=== PATIENT | male | born 1965 | race Caucasian/White ===

== ENCOUNTER → 2017-07-04 | Outpatient (CLI) | payer MEDICARE, BC ==
--- NOTE | 2017-07-04 14:19 | XR ---
EXAMINATION TYPE: XR KUB DATE OF EXAM: 07/04/2017 COMPARISON: NONE INDICATION: Renal stones. TECHNIQUE: Single view abdomen supine view FINDINGS: There is a normal bowel gas pattern. Psoas margins are normal. No organomegaly is present. There is a 1.1 x 0.5 cm calcification overlying the tip of the left L5 transverse process could be a distal left ureteral stone. In the frontal projection couple small calcifications may overlie the tip of the left 12th rib over the inferior pole left kidney could be renal stones. Suspect metallic fore ign body on or within the patient at the right lower quadrant is present. This exam is compared to 05/11/2013. The suspected mid left ureteral stone is new. There was a inferi or pole left renal calcifications present previously. IMPRESSION: 1. Mid left ureteral stone measuring 1.1 x 0.5 cm overlying the fifth left transverse process. 2. Suspected inferior pole left renal stones at the level of the tip of the 12th rib.
== END | disposition home or self-care (01) ==
LOC: RADXRMAIN 13:39
PROVIDERS: ATTEND Physician Assistant
DX: N20.1 Calculus of ureter (principal)
CPT/HCPCS: 74000

== ENCOUNTER → 2018-02-24 | Outpatient (CLI) | payer MEDICARE, BC ==
--- NOTE | 2018-02-24 10:13 | CT ---
EXAMINATION TYPE: CT shoulder RT wo con DATE OF EXAM: 02/24/2018 COMPARISON: None HISTORY: Right shoulder pain for years. Pre Op shoulder replacement TECHNIQUE: CT DLP: 1097.[address] slices were obtained of the right shoulder with sagittal and coronal reformats ob tained for review. 3-D bone reconstructed images were obtained and a separate workstation and also cason bmitted for review. Automated exposure control for dose reduction was used. FINDINGS: There is extensive right glenohumeral arthropathy with large protuberant osteophyte emanating inferio rly from the humeral head into the axillary recess. Air is present within the joint space likely from extensive degenerative change. There is remodeling and flattening of the glenoid with marginal osteo phytes. Subchondral sclerosis is seen of the humeral head. Overall muscle volume of the rotator cuff is maintained. No significant joint effusion is seen. No ev idence of acute fracture or dislocation is noted. Only minimal acromioclavicular arthropathy is prese nt as small marginal osteophytes. The visualized portions of the right lung are well aerated with minimal atelectasis that is subsegmen faina. Visualized portions of the right clavicle and ribs are intact. No axillary adenopathy. IMPRESSION: 1. EXTENSIVE RIGHT GLENOHUMERAL ARTHROPATHY WITH REMODELING OF THE HUMERAL HEAD AND GLENOID. 2. ROTATOR CUFF VOLUME IS OVERALL MAINTAINED WITHOUT ATROPHY NOTED ON CT. 3. NO EVIDENCE OF ACUTE FRACTURE OR DISLOCATION OF THE RIGHT SHOULDER. 4. MILD ACROMIOCLAVICULAR ARTHROPATHY.
== END | disposition home or self-care (01) ==
LOC: RADCTMAIN 07:29
PROVIDERS: ATTEND Orthopaedic Surgery Sports Medicine
DX: M12.811 Other specific arthropathies, not elsewhere classified, right shoulder (principal)

== ENCOUNTER → 2018-03-19 | Outpatient (CLI) | payer MEDICARE, BC ==
[2018-03-19 10:22] LABS: HCT 45.1 % (39.0-53.0); HGB 14.5 gm/dL (13.0-17.5); MCH 29.8 pg (25.0-35.0); MCHC 32.2 g/dL (31.0-37.0); MCV 92.4 fL (80.0-100.0); Mean Platelet Volume 6.5; Platelet Count 236 k/uL (150-450); RBC 4.88 m/uL (4.30-5.90); RDW 12.7 % (11.5-15.5); WBC 6.7 k/uL (3.8-10.6)
[2018-03-19 10:31] LABS: INR 1.1 (<1.2); Partial Thromboplastin Time 23.8 sec (22.0-30.0); Prothrombin Time 10.4 sec (9.0-12.0)
[2018-03-19 10:34] LABS: Appearance,Urine Clear (Clear); Bilirubin,Urine Negative (Negative); Blood,Urine Trace (Negative); Color,Urine Yellow; Glucose,Urine (UA) Negative (Negative); Ketones,Urine Negative (Negative); Leukocyte Esterase,Urine Negative (Negative); Mucus,Urine Rare /hpf; Nitrite,Urine Negative (Negative); PH, Urine 6.5 (5.0-8.0); Protein,Urine Negative (Negative); RBC,Urine 2 /hpf (0-5); Specific Gravity,Urine 1.016 (1.001-1.035); Urobilinogen,Urine <2.0 mg/dL (<2.0); WBC,Urine 1 /hpf (0-5)
[2018-03-19 10:43] LABS: ALT 47 U/L (21-72); AST 30 U/L (17-59); Albumin 4.2 g/dL (3.5-5.0); Alkaline Phosphatase 72 U/L (38-126); Anion Gap 7 mmol/L; Blood Urea Nitrogen 20 mg/dL (9-20); Calcium 9.4 mg/dL (8.4-10.2); Carbon Dioxide 30 mmol/L (22-30); Chloride 104 mmol/L (98-107); Glucose 107 mg/dL (74-99); Potassium 5.2 mmol/L (3.5-5.1); Sodium 141 mmol/L (137-145); Total Bilirubin 0.4 mg/dL (0.2-1.3); Total Protein 7.1 g/dL (6.3-8.2)
== END | disposition home or self-care (01) ==
LOC: LABPAT 10:01
PROVIDERS: ATTEND Orthopaedic Surgery Sports Medicine
DX: Z01.812 Encounter for preprocedural laboratory examination (principal)
CPT/HCPCS: 36415; 80053; 81001; 85027; 85610; 85730; 87070

== ENCOUNTER 2018-03-27 11:30 | Inpatient (IN) | payer MEDICARE, BC ==
[2018-03-20 10:26] VITALS: BMI 40.3
[~2018-03-27 11:30] MED LIST: ACETAMINOPHEN TAB 500 MG TAB PO ONE; DEXAMETHASONE SOD PHOSPHATE 10 MG/ML 1 ML VIAL IV ONE; MELOXICAM 7.5 MG TAB PO ONE; MIDAZOLAM 2 MG/2 ML VIAL IV PRN; ONDANSETRON 4 MG/2 ML VIAL IVP ONE; SCOPOLAMINE 1.5MG/72HR PATCH TRANSDERM ONE; TRANEXAMIC ACID 1,000 MG in SODIUM CHLORIDE 0.9% 50 ML IVPB ONE; ceFAZolin IN SWFI 2 GM/20 ML SYRINGE IVP ONE
[2018-03-27] MEDS ORDERED: LIDOCAINE 1% 20 ML VIAL (10MG/ML) FOR IV START INTRADERMA ONE (12:30)
[2018-03-27] MEDS ORDERED: fentaNYL (PF) 50 MCG/ML 2 ML AMP IVP ONE (12:36)
[2018-03-27] MEDS: LACTATED RINGERS 1,000 ML IV SCH ×3 (13:01→23:26)
[2018-03-27] MEDS ORDERED: PHENYLEPHRINE-0.9% NACL SYG 1 MG/10 ML SYRINGE ONE (13:24)
[2018-03-27] MEDS ORDERED: ePHEDrine SULFATE/0.9% NACL/PF 50 MG/5 ML SYRINGE IV ONE (13:24)
[2018-03-27] MEDS ORDERED: NEOSTIGMINE 1 MG/ML 10 ML VIAL ONE (13:24)
[2018-03-27] MEDS ORDERED: SUCCINYLCHOLINE CHLORIDE 100 MG/5 ML SYR IV ONE (13:24)
[2018-03-27] MEDS ORDERED: PROPOFOL 10 MG/ML 20 ML VIAL IV ONE (13:24)
[2018-03-27] MEDS ORDERED: TRANEXAMIC ACID 1,000 MG/10 ML VIAL ONE (13:24)
[2018-03-27] MEDS ORDERED: MIDAZOLAM 2 MG/2 ML VIAL ONE (13:24)
[2018-03-27] MEDS ORDERED: LIDOCAINE 1% INJ 10MG/ML (20 ML MDV) ONE (13:24)
[2018-03-27] MEDS ORDERED: ROCURONIUM BROMIDE 10 MG/ML 10 ML VIAL IV ONE (13:24)
[2018-03-27] MEDS ORDERED: GLYCOPYRROLATE 0.2 MG/ML 2 ML VIAL ONE (13:24)
[2018-03-27] MEDS ORDERED: SODIUM CHLORIDE 0.9% 100 ML BAG ONE (13:24)
[2018-03-27] MEDS ORDERED: fentaNYL (PF) 50 MCG/ML 2 ML AMP ONE (13:24)
[2018-03-27] MEDS ORDERED: VANCOMYCIN 1,000 MG VIAL MISCELLANE ONE (14:00)
--- NOTE | 2018-03-27 15:18 | P.ONQ ---
Anesthesiology Proc Note - PNB - Peripheral Nerve Block Performed Right Interscalene Single Procedure Start Time: 12:35 Procedure Stop Time: 12:50 Indication: Analgesia Specifically requested for management of pain by Dr.: Jung Wheat Sedation Type: Sedate with meaningful contact maintained Preparation: Sterile Prep Position: Supine Needle Types: Other (see comment) Needle Size: 50mm (2") (pujunk) Needle Gauge: 21 (ropivacaine 0.5 % 15 ml plus Lidocaine 1 % with epi 1/200k 10 ml ) Technique: Ultrasound Injectate: 0.5% Ropivacaine (see comment for volume) Blood Aspirated: No Pain Paresthesia on Injection Noted: No Resistance on Injection: Normal Events: Uneventful and Well Tolerated
[2018-03-27] MEDS ORDERED: PROCHLORPERAZINE SUPPOSITORY 25 MG SUPP RECTAL PRN (15:45)
[2018-03-27] MEDS ORDERED: SENNOSIDES-DOCUSATE SODIUM 1 EACH TAB PO PRN (15:45)
[2018-03-27] MEDS ORDERED: HYDROmorphone 1 MG/ML 1 ML SYRINGE IVP PRN ×2 (15:45)
[2018-03-27] MEDS ORDERED: TEMAZEPAM 15 MG CAP PO PRN (15:45)
[2018-03-27] MEDS ORDERED: ONDANSETRON 4 MG/2 ML VIAL IVP PRN (15:45)
[2018-03-27] MEDS ORDERED: diphenhydrAMINE 25 MG CAP PO PRN (15:45)
[2018-03-27] MEDS ORDERED: METOCLOPRAMIDE 5 MG/ML 2 ML VIAL IVP PRN (15:45)
[2018-03-27] MEDS: fentaNYL (PF) 50 MCG/ML 2 ML AMP IV PRN ×2 (16:04→16:10)
--- NOTE | 2018-03-27 16:09 | XR ---
Limited right shoulder HISTORY: Status post right shoulder arthroplasty Single frontal view of the right shoulder Patient is status post right shoulder arthroplasty. There is anatomic alignment thought present in th is single view. Motion present on the exam. Indwelling drain suspected. IMPRESSION: Orthopedic follow-up as described, somewhat limited.
[2018-03-27] MEDS: HYDROmorphone 1 MG/ML 1 ML SYRINGE IVP ONE ×4 (16:28→16:52)
[2018-03-27] MEDS: CARVEDILOL 3.125 MG TAB PO SCH (17:55)
[2018-03-27] MEDS: HYDROcodone/APAP 10-325MG 1 EACH TAB PO PRN (17:55)
--- NOTE | 2018-03-27 19:06 | OP ---
OPERATIVE REPORT DATE OF PROCEDURE: 03/27/2018 SURGEON: Jung Wheat MD SUPERVISOR [employer] FORMER: Derek Recio PA-C PREOPERATIVE DIAGNOSIS: Right shoulder osteoarthrosis. POSTOPERATIVE DIAGNOSIS: Right shoulder osteoarthrosis. OPERATION: Right total shoulder arthroplasty. ANESTHESIA: General endotracheal. ESTIMATED BLOOD LOSS: 150 mL. DRAINS: One deep drain. COMPLICATIONS: None apparent. DISPOSITION: Post-Anesthesia Care Unit. INDICATIONS: Mr. Cline is a very pleasant 52-year-old male with longstanding right shoulder pain. Workup, including x-rays, revealed advanced osteoarthrosis of the right shoulder. At this point he feels that he has failed conservative management and would like to proceed with operative intervention. The risks of the procedure were discussed with him in detail. These risks include but are not limited to risk of infection, nerve damage, bleeding, pain, instability in the shoulder, loosening of the implants and deep infection. There is also risk of deep vein thrombosis which could lead to fatal pulmonary embolism. The patient understood the risks. All of his questions with regards to the procedure were answered to his satisfaction. Appropriate informed consent was obtained. DESCRIPTION OF PROCEDURE: Patient was identified in the preoperative holding area. Surgical site was marked by both the patient and myself. He was given 2 grams of Ancef IV for prophylactic purposes. He was then transferred to the operative suite. He was placed supine on the operative table. General anesthetic was then administered and dosed per the anesthesia department without apparent complication. Examination under anesthesia was then performed of the right shoulder. He had elevation of 120 degrees. External rotation at the side was to 30 degrees. The patient was then placed into the beach chair position, well padded in preparation for surgery. Great care was taken to ensure that the cervical spine was in neutral alignment and maintained that way throughout the operative procedure. Great care was also taken to ensure that his legs were appropriately padded as well. The patient's right upper extremity was then prepped and draped in the usual sterile fashion. Standard surgical pause was undertaken to ensure that we were operating on the correct site and that appropriate preoperative antibiotics had been given. All staff in the room were in agreement and we proceeded. The acromion, AC joint, clavicle and coracoid were marked with a surgical pen. A planned incision starting at the level of the clavicle and extending distally over the deltopectoral interval approximately 1 cm lateral to the coracoid was marked with a surgical pen. The incision was then made with a 10 blade scalpel. Dissection was carried down sharply to the deltoid fascia. The deltopectoral interval was then identified at the level of the clavicle. A small band retractor was placed onto the proximal deltoid. I then released the deltoid fascia on the lateral aspect of the cephalic vein. The vein was left in its bed medially. The cephalic vein was protected throughout the entire case. I then identified the clavipectoral fascia. It was incised proximally to the level of the coracoacromial ligament. The coracoacromial ligament was left intact. I then used my finger to spread the interval between the conjoint tendon and the subscapularis. I felt for the axillary nerve, which was readily palpable. I then cleared the subacromial and subdeltoid spaces of bursal and scar tissue. I then utilized a Maguire retractor to hold the deltoid and expose the humeral head. I then proceeded with release of the subscapularis and the anterior inferior shoulder capsule. The rotator cuff was inspected. It was found to be intact. The rotator interval was identified. The bicipital groove was also identified. I then released the rotator interval. It was released at the base of the coracoid and then out laterally. The subscapularis and the capsule were released intratendinously. The subscapularis and capsule release extended distally in a lazy-S fashion approximately 1 cm medial to the biceps tendon. I then continued to release the capsule along the inferior neck in a vertical fashion to about the 6 o'clock position. Great care was taken to ensure that the capsule was always visualized as it was released to avoid injuring the axillary nerve. I then brought a Garcia hvac instructor with the arm and then externally rotated and abducted it. I continued to release the capsule inferomedially to the 4 o'clock position. The inferior osteophytes were now removed as well. This was done with a rongeur. I then proceeded with preparation of the humerus. I removed all the goat's adan osteophytes. I then removed the subchondral plate from the superior aspect of the humeral head utilizing a large rongeur. I then used the starting reamer to gain access to the humeral canal. This was 1 cm medial to the rotator cuff insertion and 1 cm posterior to the bicipital groove. I then prepared the humeral canal with hand reaming. I started with a 6 mm reamer and progressed in 1 mm increments until firm resistance was encountered. This was at 12 mm. The reamer handle was then left in place. I then utilized the humeral resection guide set at 30 degrees of retrotorsion. The cutting block was set approximately 1-2 mm above the insertion of the rotator cuff. I then proceeded to osteotomize the head with an oscillating saw. I removed the resection guide and then completed the osteotomy. I then proceeded with trial stem placement. A trial size 12 was then broached into the canal starting with a size 6 broach and moving incrementally up to a 12 mm broach. A trial 12 mm stem was then placed. I then proceeded with a trial reduction. I started with a 46 x 18 x 53 head. This seemed to fit very nicely. The head fit opposite the glenoid. The rotator cuff was not tented. Internal rotation was to 90 degrees. Elevation was to 150 degrees and translation was one half of the head in neutral rotation and inferiorly one quarter of the head in 15-20 degrees of abduction. I then removed the trial head. The stem was left in place to protect the proximal humerus. I then proceeded with exposure of the glenoid. At this point a bone hook was used to pull the humerus out laterally. I inspected the joint for any loose bodies. The condition of the cuff was again inspected. It was in excellent condition. The Bhattman retractor was then placed on the posterior glenoid rim. The arm was placed in approximately 80 degrees of abduction and in slight flexion on the Garcia stand. I then proceeded to remove the hypertrophic labrum to definitively identify the actual glenoid. I then selected the size of the glenoid. A medium-sized glenoid fit very nicely. I then utilized a starting drill to make the centering hole. I then proceeded to ream the glenoid fossa. This was done with a medium-sized reamer. The reamer was taken down to paprika signs. There was a nice bleeding surface. There was a tiny bit of posterior inferior loss, and I preferentially took off slightly more anterior glenoid with the reaming. I then proceeded to place the glenoid drill holes. The peripheral drill holes were then placed and the center hole was then drilled as well. I then placed the trial medium-sized glenoid. It fit very nicely onto the glenoid. I then proceed with cementing. I Waterpikked the wound in the bone. The drill holes were packed with Ray-Sowmya sponges. The cement was then mixed on the back table by the surgical garment inspector. This was antibiotic-impregnated cement. Drill holes were then packed with cement utilizing a 20 mL syringe. These were packed very tightly. A small amount of cement was then placed on the posterior aspect of the real glenoid component as well. I then impacted the real glenoid component into place. It was a Biomet medium-sized pegged glenoid component with a Regenerex central peg. Excess cement was removed utilizing a freer elevator. Pressure was held on to the glenoid component until the cement had hardened. I then removed the Bhattman retractor. We then proceeded with humeral component trial reduction with the real glenoid. The 46 x 18 x 53 head was then placed back onto the stem. Again this was taken through a trial. The head set opposite the glenoid. The rotator cuff was not tented. Elevation was to 150 degrees, internal rotation in 90 degrees and translation was one half of the head in neutral rotation and one quarter of the head in 15-20 degrees of abduction. I then had the traffic workforce representative open the 46 x 18 x 53 real head, a size 12 Biomet mini stem as well. The stem was then impacted into the canal in 30 degrees of retrotorsion. The real head was then impacted onto the stem. The shoulder was reduced. I then proceeded with closure. Again the wound was thoroughly irrigated with sterile saline solution was antibiotic added via pulse lavage. The rotator interval was closed with #1 coated Vicryl. The subscapularis was then closed with interrupted #2 FiberWire suture. A deep drain was then placed and brought out superiorly away from the incision. Again the wound was thoroughly irrigated. Approximately 500 mg of vancomycin powder was then placed deep into the wound. The deltopectoral interval was then closed with 0 Vicryl interrupted suture. The subcutaneous tissue was again thoroughly irrigated with sterile saline solution with antibiotic added via pulse lavage. The remaining 500 mg of vancomycin powder was then added to the wound. The subcutaneous tissue was then closed with 2-0 Vicryl interrupted suture and the skin was closed with a running 3-0 Quill suture. Dermabond was applied to the incision. Sterile compressive dressing was then applied. The patient's right upper extremity was then placed into a shoulder immobilizer. All sponge and needle counts were deemed correct prior to closure. The patient tolerated the procedure without apparent complication. He was transferred to the recovery room in stable condition. ESTER / JOEY: [id number] /
[2018-03-27] MEDS: HYDROmorphone 1 MG/ML 1 ML SYRINGE IVP PRN ×2 (19:42→23:25)
[2018-03-27] MEDS: ATORVASTATIN 80 MG TAB PO SCH (20:38)
[2018-03-27] MEDS: DOXYCYCLINE MONOHYDRATE 100 MG CAPSULE PO SCH (20:38)
[2018-03-27] MEDS: ceFAZolin IN SWFI 2 GM/20 ML SYRINGE IVP SCH (20:38)
[2018-03-28] MEDS: HYDROcodone/APAP 10-325MG 1 EACH TAB PO PRN ×6 (00:05→23:02)
[2018-03-28 03:21] LABS: Basophils % (A) 0 %; Eosinophils % (A) 0 %; HCT 43.4 % (39.0-53.0); HGB 13.9 gm/dL (13.0-17.5); Lymphocytes # (A) 1.2 k/uL (1.0-4.8); Lymphocytes % (A) 12 %; MCH 29.4 pg (25.0-35.0); MCHC 31.9 g/dL (31.0-37.0); MCV 92.3 fL (80.0-100.0); Mean Platelet Volume 6.3; Monocytes # (A) 0.9 k/uL (0-1.0); Monocytes % (A) 9 %; Neutrophils # (A) 8.2 k/uL (1.3-7.7); Neutrophils % (A) 78 %; Platelet Count 261 k/uL (150-450); RBC 4.71 m/uL (4.30-5.90); RDW 12.6 % (11.5-15.5); WBC 10.6 k/uL (3.8-10.6)
[2018-03-28 03:27] LABS: Anion Gap 12 mmol/L; Blood Urea Nitrogen 23 mg/dL (9-20); Calcium 9.3 mg/dL (8.4-10.2); Carbon Dioxide 23 mmol/L (22-30); Chloride 99 mmol/L (98-107); Glucose 154 mg/dL (74-99); Potassium 4.6 mmol/L (3.5-5.1); Sodium 134 mmol/L (137-145)
[2018-03-28] MEDS: ceFAZolin IN SWFI 2 GM/20 ML SYRINGE IVP SCH (05:49)
[2018-03-28] MEDS: LACTATED RINGERS 1,000 ML IV SCH ×2 (05:52→16:26)
[2018-03-28] MEDS: LISINOPRIL 5 MG TAB PO SCH (08:34)
[2018-03-28] MEDS: EZETIMIBE 10 MG TAB PO SCH (08:34)
[2018-03-28] MEDS: DOXYCYCLINE MONOHYDRATE 100 MG CAPSULE PO SCH ×2 (08:34→20:24)
[2018-03-28] MEDS: CARVEDILOL 3.125 MG TAB PO SCH ×2 (08:34→17:58)
[2018-03-28] MEDS: ASPIRIN 81 MG PO SCH (08:34)
[2018-03-28] MEDS: FENOFIBRATE 160 MG TAB PO SCH (08:35)
[2018-03-28] MEDS ORDERED: NON-FORMULARY DRUG (Omega-3 Fatty Acids/Fish Oil [Fish Oil 1,000 Mg Softgel] 1 EACH) PO SCH (09:00)
--- NOTE | 2018-03-28 09:31 | P.DS ---
Providers Date of admission: 03/27/18 11:42 Expected date of discharge: 03/28/18 Attending physician: Jung Wheat Consults: 03/27/18 15:53 Consult Physician Routine Consulting Provider: Garrett Ortiz Consult Reason/Comments: post op medical management Do you want consulting provider notified?: Yes Primary care physician: Meg Pat - Discharge Diagnosis(es) (1) Status post total replacement of right shoulder Current Visit: Yes Status: Acute (2) Osteoarthritis of right shoulder Current Visit: Yes Status: Acute Hospital Course: This is a 52-year-old male who has history of severe degenerative arthritis of the right shoulder and presented to discuss surgical options. After discussion and consideration the patient elects to proceed with total shoulder arthroplasty. The pt is seen preoperatively by their family physician and cleared for surgery. The patient is admitted to [facility] on 03/27/2018 for total right shoulder arthroplasty. He is doing well postoperatively. Vital signs and hemoglobin are stable. The pt is able to get up out of bed independently and is ambulating without assistance. Pain is well controlled. On day of discharge patient's shoulder incision is healing well. There is minimal erythema. There is no drainage noted at this time. Hemovac drain removed today. There is minimal soft tissue swelling to the right upper extremity. Patient has full hand, wrist, and elbow motion without difficulty or pain. Neurovascular status to the right upper extremity is intact. Patient is discharged to home in good condition. Please see med rec for accurate list of home medications. Pertinent Studies: Laboratory Tests 03/28/18 03/28/18 02:42 02:42 WBC 10.6 RBC 4.71 Hgb 13.9 Hct 43.4 Sodium 134 L BUN 23 H Creatinine 0.49 L Glucose 154 H Patient Condition at Discharge: Stable Plan - Discharge Summary Discharge Rx Participant: Yes New Discharge Prescriptions: New Docusate [Colace] 100 mg PO BID #60 capsule Doxycycline Hyclate 100 mg PO BID #10 tab HYDROcodone/APAP 10-325MG [[place] 10-325] 1 tab PO Q4HR PRN #42 tab PRN Reason: Pain No Action Ibuprofen [Advil] 200 - 400 mg PO Q6HR PRN PRN Reason: Pain HYDROcodone/APAP 7.5-325MG [[place] 7.5-325] 0.5 tab PO BID PRN PRN Reason: Pain Rosuvastatin Calcium [Crestor] 40 mg PO HS Lisinopril [Zestril] 5 mg PO DAILY Gemfibrozil [Lopid] 600 mg PO AC-BID Ezetimibe [Zetia] 10 mg PO DAILY Carvedilol [Coreg] 3.125 mg PO BID Aspirin 81 mg PO DAILY [place]-3 Fatty Acids/Fish Oil [Fish Oil 1,000 mg Softgel] 1 each PO DAILY Discharge Medication List Aspirin 81 mg PO DAILY 03/20/18 [History] Carvedilol [Coreg] 3.125 mg PO BID 03/20/18 [History] Ezetimibe [Zetia] 10 mg PO DAILY 03/20/18 [History] Gemfibrozil [Lopid] 600 mg PO AC-BID 03/20/18 [History] HYDROcodone/APAP 7.5-325MG [[place] 7.5-325] 0.5 tab PO BID PRN 03/20/18 [History] Ibuprofen [Advil] 200 - 400 mg PO Q6HR PRN 03/20/18 [History] Lisinopril [Zestril] 5 mg PO DAILY 03/20/18 [History] [place]-3 Fatty Acids/Fish Oil [Fish Oil 1,000 mg Softgel] 1 each PO DAILY [History] Rosuvastatin Calcium [Crestor] 40 mg PO HS 03/20/18 [History] Docusate [Colace] 100 mg PO BID #60 capsule 03/27/18 [Rx] Doxycycline Hyclate 100 mg PO BID #10 tab 03/27/18 [Rx] HYDROcodone/APAP 10-325MG [[place] 10-325] 1 tab PO Q4HR PRN #42 tab 03/27/18 [Rx] Follow up Appointment(s)/Referral(s): Jung Wheat MD [STAFF PHYSICIAN] - 1 Week Activity/Diet/Wound Care/Special Instructions: Maintain sling keep wound clean and dry may shower after 72 hrs if no bleeding Take meds as directed non weightbearing f/u Dr. Wheat in office Discharge Disposition: HOME SELF-CARE
[2018-03-28] MEDS: HYDROmorphone 1 MG/ML 1 ML SYRINGE IVP PRN (10:20)
[2018-03-28] MEDS: hydrOXYzine PAMOATE 25 MG CAP PO PRN ×2 (11:26→19:11)
--- NOTE | 2018-03-28 12:21 | P.CONS ---
History of Present Illness - Reason for Consult Consult date: 03/27/18 Medical management of hypertension and other medical problems - Chief Complaint Right shoulder total arthroplasty - History of Present Illness Pt. is a 52/M with a PMH of Hyperlipidemia, Hypertension, Osteoarthritis (OA) was admitted to hospital for elective right shoulder total arthroplasty. Patient tolerated the procedure very well. Currently denied any complaints of chest pain or shortness of breath. No nausea vomiting or abdominal pain. No diarrhea or dysuria. Blood pressure is slightly elevated otherwise. No fever no chills. Review of Systems Constitutional: Patient denies any fever or chills . No generalized weakness or weight loss. Abdomen: Patient denied nausea vomiting and diarrhea and abdominal pain. Cardiovascular: Patient denies any chest pain or short of breath no palpitations. Respiratory: patient denied any cough is from production. No shortness of breath Neurologic: Patient denied any numbness or tingling headache. Musculoskeletal: Patient denies any complaints of joint swelling or deformity. Skin: Negative Psychiatric: Negative Endocrine: No heat or cold intolerance. No recent weight gain. Genitourinary: No dysuria or hematuria. All other 14 point ROS negative except the above Past Medical History Past Medical History: Hyperlipidemia, Hypertension, Osteoarthritis (OA) History of Any Multi-Drug Resistant Organisms: None Reported Past Surgical History: Orthopedic Surgery, Tonsillectomy Additional Past Surgical History / Comment(s): arthroscopic shoulder surg, lithotripsy Past Anesthesia/Blood Transfusion Reactions: No Reported Reaction Smoking Status: Former smoker - Past Family History Mother Family Medical History: Cancer Sister(s) Family Medical History: No Reported History Father Family Medical History: Cancer Medications and Allergies Home Medications Medication Instructions Recorded Confirmed Type Aspirin 81 mg PO DAILY 03/20/18 03/27/18 History Carvedilol [Coreg] 3.125 mg PO BID 03/20/18 03/27/18 History Ezetimibe [Zetia] 10 mg PO DAILY 03/20/18 03/27/18 History Gemfibrozil [Lopid] 600 mg PO AC-BID 03/20/18 03/27/18 History HYDROcodone/APAP 7.5-325MG [[place] 0.5 tab PO BID PRN 03/20/18 03/27/18 History 7.5-325] Ibuprofen [Advil] 200 - 400 mg PO Q6HR PRN 03/20/18 03/27/18 History Lisinopril [Zestril] 5 mg PO DAILY 03/20/18 03/27/18 History [place]-3 Fatty Acids/Fish Oil [Fish 1 each PO DAILY 03/20/18 03/27/18 History Oil 1,000 mg Softgel] Rosuvastatin Calcium [Crestor] 40 mg PO HS 03/20/18 03/27/18 History Docusate [Colace] 100 mg PO BID #60 capsule 03/27/18 Rx Doxycycline Hyclate 100 mg PO BID #10 tab 03/27/18 Rx HYDROcodone/APAP 10-325MG [[place] 1 tab PO Q4HR PRN #42 tab 03/27/18 Rx 10-325] Allergies Allergy/AdvReac Type Severity Reaction Status Date / Time No Known Allergies Allergy Verified 03/27/18 12:06 Physical Exam Vitals: Vital Signs Temp Pulse Pulse Resp BP Pulse Ox 03/27/18 16:45 103 H 18 157/88 94 L 03/27/18 16:30 104 H 18 158/86 99 03/27/18 16:15 95 18 158/105 99 03/27/18 16:00 92 18 110/73 99 03/27/18 15:40 97.1 F L 105 H 18 134/81 99 03/27/18 13:00 80 18 119/86 98 03/27/18 12:16 97.9 F 94 18 131/87 95 Intake and Output 03/27/18 03/27/18 03/27/18 06:59 14:59 22:59 Intake Total 1200 200 Output Total 150 Balance 1050 200 Intake: IV 1200 200 Output: Estimated Blood Loss 150 PHYSICAL EXAMINATION: Patient is lying in the bed comfortably, no acute distress, awake alert and oriented.. HEENT: Normocephalic. Neck is supple. Pupils reactive. Nostrils clear. Oral cavity is moist. Ears reveal no drainage. Neck reveals no JVD, carotid bruits, or thyromegaly. CHEST EXAMINATION: Trachea is central. Symmetrical expansion. Lung tracy clear to auscultation and percussion. CARDIAC: Normal S1, S2 with no gallops. No murmurs ABDOMEN: Soft. Bowel sounds normal. No organomegaly. No abdominal bruits. Extremities: reveal no edema. No clubbing or cyanosis Neurologically awake, alert, oriented x3 with well-coordinated movements. No focal deficits noted Skin: No rash or skin lesions. Psychiatric: Coperative. Nonsuicidal Musculoskeletal: No joint swelling or deformity. Right shoulder surgical site intact. Wound VAC in place. Results CBC & Chem 7: 03/28/18 02:42 03/28/18 02:42 Assessment and Plan Assessment: Status post right shoulder total arthroplasty Hypertension. Blood pressure slightly elevated. Start back on home medications Hyperlipidemia OA History of renal stones and lithotripsy Previous history of smoking Plan: Patient will be continued on pain management and DVT prophylaxis. Continue with home blood pressure medications and follow closely. Encourage ambulation and further recommendations based on the clinical course. We will continue to follow. Thank you for your consult Time with Patient: Greater than 30
[2018-03-28] MEDS ORDERED: SODIUM CHLORIDE 0.9% 500 ML IV ONE ×2 (12:28→12:54)
--- NOTE | 2018-03-28 13:57 | ECHOF ---
Referral Reason:tackycardia MEASUREMENTS -------- HEIGHT: 165.1 cm WEIGHT: 113.4 kg BP: 144/99 RVIDd: 3.9 cm (< 3.3) IVSd: 1.4 cm (0.6 - 1.1) LVIDd: 5.3 cm (3.9 - 5.3) LVPWd: 1.5 cm (0.6 - 1.1) IVSs: 1.7 cm LVIDs: 3.0 cm LVPWs: 1.7 cm Ao Diam: 3.5 cm (2.0 - 3.7) AV Cusp: 1.6 cm (1.5 - 2.6) LA Diam: 4.3 cm (2.7 - 3.8) MV EXCURSION: 25.380 mm (> 18.000) MV EF SLOPE: 124 mm/s (70 - 150) EPSS: 0.3 cm MV E Jimmie: 0.53 m/s MV DecT: 192 ms MV A Jimmie: 0.87 m/s MV E/A Ratio: 0.60 RAP: 5.00 mmHg RVSP: 14.52 mmHg FINDINGS -------- Resting tachycardia (HR>100bpm). This was a techncally difficult study with suboptimal views, , Definity utilized for enhancement of i mages. The left ventricular size is normal. There is mild concentric left ventricular hypertrophy. Overa ll left ventricular systolic function is normal with, an EF between 55 - 60 %. The right ventricle is normal in size. The left atrial size is normal. The right atrial size is normal. 1.5MG OF DEFINITY UTLIZED: 2 OR MORE WALL SEGMENTS NOT VISUALIZED. There is mild aortic valve sclerosis. There is no evidence of aortic regurgitation. Mild mitral annular calcification present. Mild mitral regurgitation is present. Mild tricuspid regurgitation present. There is no evidence of pulmonary hypertension. The right v entricular systolic pressure, as measured by Doppler, is 14.52mmHg. There is no pulmonic regurgitation present. The aortic root size is normal. There is no pericardial effusion. CONCLUSIONS -------- 1. This was a techncally difficult study with suboptimal views, , Definity utilized for enhancement o f images. 2. The left ventricular size is normal. 3. There is mild concentric left ventricular hypertrophy. 4. Overall left ventricular systolic function is normal with, an EF between 55 - 60 %. 5. The right ventricle is normal in size. 6. The left atrial size is normal. 7. The right atrial size is normal. 8. 1.5MG OF DEFINITY UTLIZED: 2 OR MORE WALL SEGMENTS NOT VISUALIZED. 9. There is mild aortic valve sclerosis. 10. Mild mitral annular calcification present. 11. Mild mitral regurgitation is present. 12. Mild tricuspid regurgitation present. 13. There is no evidence of pulmonary hypertension. 14. The right ventricular systolic pressure, as measured by Doppler, is 14.52mmHg. 15. There is no pulmonic regurgitation present. 16. The aortic root size is normal. 17. There is no pericardial effusion. LAND MANAGER: Sheela Mast RDCS
--- NOTE | 2018-03-28 15:04 | XR ---
EXAMINATION TYPE: XR chest 2V DATE OF EXAM: 03/28/2018 COMPARISON: NONE HISTORY: Tachycardia TECHNIQUE: Frontal and lateral views of the chest are obtained. FINDINGS: There is no focal air space opacity, pleural effusion, or pneumothorax seen. The cardiac silhouette size is enlarged. Patient is rotated, lung volumes somewhat low. Patient is status post ri ght shoulder arthroplasty. The osseous structures are intact. IMPRESSION: Cardiomegaly. Postop change.
[2018-03-28 15:54] LABS: T4, Free (Free Thyroxine) 1.04 ng/dL (0.78-2.19)
[2018-03-28] MEDS ORDERED: DILTIAZEM ORAL 30 MG TAB PO STA (18:09)
--- NOTE | 2018-03-28 18:09 | P.PN ---
Subjective Progress Note Date: 03/28/18 Principal diagnosis: Right shoulder total arthroplasty Sinus tachycardia Pt. is a 52/M with a PMH of Hyperlipidemia, Hypertension, Osteoarthritis (OA) was admitted to hospital for elective right shoulder total arthroplasty. Patient tolerated the procedure very well. Currently denied any complaints of chest pain or shortness of breath. No nausea vomiting or abdominal pain. No diarrhea or dysuria. Blood pressure is slightly elevated otherwise. No fever no chills. 03/28/2018 Today patient denied any complaints of chest pain or shortness of breath. No headache or dizziness or lightheadedness. Right shoulder pain is well controlled. Pigtail catheter was removed. Patient is able to with well without any symptoms. Otherwise patient is still having tachycardia. Went up to 130s. No fever no chills. No cough is from production. No nausea vomiting or abdominal pain. Patient does have a history of suspected viral myocarditis as per patient. EKG showed sinus tachycardia Chest x-ray showed cardiomegaly. No acute process 2-D echocardiogram showed normal ejection fraction today. Patient is being on ring striker. All other review of systems negative except the above Current medications reviewed Objective - Vital Signs Vital signs: Vital Signs Temp 99 F 03/28/18 07:22 Pulse 115 H 03/28/18 10:28 Resp 16 03/28/18 07:22 BP 144/99 03/28/18 07:22 Pulse Ox 95 03/28/18 07:22 Intake & Output 03/27/18 03/28/18 03/28/18 18:59 06:59 18:59 Intake Total 1400 Output Total 150 70 20 Balance 1250 -70 -20 Weight 113.398 kg Intake: IV 1400 Output: Drainage 70 20 Right Shoulder 70 20 Estimated Blood Loss 150 Other: Voiding Method Urinal # Voids 1 2 - Exam PHYSICAL EXAMINATION: Patient is lying in the bed comfortably, no acute distress, awake alert and oriented.. HEENT: Normocephalic. Neck is supple. Pupils reactive. Nostrils clear. Oral cavity is moist. Ears reveal no drainage. Neck reveals no JVD, carotid bruits, or thyromegaly. CHEST EXAMINATION: Trachea is central. Symmetrical expansion. Lung tracy clear to auscultation and percussion. CARDIAC: Normal S1, S2 with no gallops. No murmurs ABDOMEN: Soft. Bowel sounds normal. No organomegaly. No abdominal bruits. Extremities: reveal no edema. No clubbing or cyanosis Neurologically awake, alert, oriented x3 with well-coordinated movements. No focal deficits noted Skin: No rash or skin lesions. Psychiatric: Coperative. Nonsuicidal Musculoskeletal: No joint swelling or deformity. Right shoulder surgical site intact. - Labs CBC & Chem 7: 03/28/18 02:42 03/28/18 02:42 Labs: Abnormal Lab Results - Last 24 Hours (Table) 03/28/18 03/28/18 Range/Units 02:42 02:42 Neutrophils # 8.2 H (1.3-7.7) k/uL Sodium 134 L (137-145) mmol/L BUN 23 H (9-20) mg/dL Creatinine 0.49 L (0.66-1.25) mg/dL Glucose 154 H (74-99) mg/dL Assessment and Plan Assessment: Status post right shoulder total arthroplasty on 03/27/2018 Hypertension. Blood pressure slightly elevated. Start back on home medications. 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 Ejection fraction normalized on repeat echocardiogram as per patient Hyperlipidemia OA History of renal stones and lithotripsy Previous history of smoking DVT prophylaxis with heparin subcu Plan: Patient will be continued on pain management and DVT prophylaxis. Continue with home blood pressure medications in the form of Coreg and lisinopril and follow closely. Patient's heart rate is still elevated. Consider cardiology evaluation tomorrow. Encourage ambulation and further recommendations based on the clinical course. Will follow closely. Time with Patient: Greater than 30
[2018-03-28 20:07] VITALS: RESP 18
[2018-03-28] MEDS: ATORVASTATIN 80 MG TAB PO SCH (20:24)
[2018-03-28] MEDS: HEPARIN SODIUM,PORCINE 5,000 UNIT/ML 1 ML VIAL SQ SCH (23:02)
[2018-03-29] MEDS: hydrOXYzine PAMOATE 25 MG CAP PO PRN ×2 (03:33→11:38)
[2018-03-29] MEDS: HYDROcodone/APAP 10-325MG 1 EACH TAB PO PRN ×3 (03:33→11:38)
[2018-03-29 07:45] LABS: Basophils % (A) 0 %; Eosinophils # (A) 0.3 k/uL (0-0.7); Eosinophils % (A) 3 %; HCT 41.3 % (39.0-53.0); HGB 13.1 gm/dL (13.0-17.5); Lymphocytes # (A) 2.3 k/uL (1.0-4.8); Lymphocytes % (A) 23 %; MCH 29.7 pg (25.0-35.0); MCHC 31.6 g/dL (31.0-37.0); MCV 93.8 fL (80.0-100.0); Mean Platelet Volume 6.3; Monocytes # (A) 1.2 k/uL (0-1.0); Monocytes % (A) 12 %; Neutrophils # (A) 5.9 k/uL (1.3-7.7); Neutrophils % (A) 59 %; Platelet Count 219 k/uL (150-450); RBC 4.41 m/uL (4.30-5.90); RDW 12.7 % (11.5-15.5); WBC 9.9 k/uL (3.8-10.6)
[2018-03-29 07:55] LABS: Anion Gap 7 mmol/L; Blood Urea Nitrogen 16 mg/dL (9-20); Calcium 9.1 mg/dL (8.4-10.2); Carbon Dioxide 31 mmol/L (22-30); Chloride 101 mmol/L (98-107); Glucose 116 mg/dL (74-99); Potassium 4.7 mmol/L (3.5-5.1); Sodium 139 mmol/L (137-145)
[2018-03-29] MEDS: ASPIRIN 81 MG PO SCH (08:57)
[2018-03-29] MEDS: EZETIMIBE 10 MG TAB PO SCH (08:57)
[2018-03-29] MEDS: HEPARIN SODIUM,PORCINE 5,000 UNIT/ML 1 ML VIAL SQ SCH (08:57)
[2018-03-29] MEDS: CARVEDILOL 3.125 MG TAB PO SCH (08:57)
[2018-03-29] MEDS: FENOFIBRATE 160 MG TAB PO SCH (08:57)
[2018-03-29] MEDS: LISINOPRIL 5 MG TAB PO SCH (08:57)
[2018-03-29] MEDS: DOXYCYCLINE MONOHYDRATE 100 MG CAPSULE PO SCH (08:57)
--- NOTE | 2018-03-29 10:25 | P.PN ---
Progress Note - Text Progress Note Date: 03/29/18 This is an addendum to the discharge summary on Bogdan Cline. His discharge was held yesterday due to tachycardia and pain issues. The patient is stable on exam today. We're waiting medical clearance for discharge. He may be discharged from an orthopedic standpoint.
[2018-03-29 10:31] VITALS: BP 139/81; PULSE 106; TEMP 98.4
--- NOTE | 2018-03-29 20:14 | PN ---
PROGRESS NOTE DATE OF SERVICE: 03/29/2018 INTERVAL HISTORY: This 52-year-old woman who was admitted with right shoulder arthroplasty, also had hypertension. No chest pain. No palpitations. No fever. PHYSICAL EXAM: Alert and oriented x3. Pulse 106, blood pressure 130/80, respiration 18, temperature 98.4, pulse ox 97% room air. HEENT: Conjunctivae normal. NECK: No JVD. CARDIOVASCULAR: S1, S2 muffled. RESPIRATORY: Diminished breath sounds at the bases. No rhonchi, no crackles. ABDOMEN: Soft. LEGS: No edema. NERVOUS SYSTEM: No focal deficits. Status post right shoulder arthroplasty. LABS: CBC within normal limits. BMP noted. ASSESSMENT: 1. Status post right shoulder arthroplasty. 2. Hypertension. 3. Sinus tachycardia. 4. 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 5. Hyperlipidemia. 6. DJD. RECOMMENDATIONS: Recommend to continue current management, continue symptomatic treatment. Otherwise, at this time I recommend close monitoring and close follow up with Dr. Pat after discharge. Otherwise, rest of the recommendations per Orthopedic surgery. MMODL / IJN: [id number] / MTDD
== END 2018-03-29 13:59 | disposition home or self-care (01) | DRG 483 ==
LOC: 2ORMAIN 11:42 → 3SUR 15:45
PROVIDERS: ADMIT Orthopaedic Surgery Sports Medicine; ATTEND Orthopaedic Surgery Sports Medicine
PROC: 0RRJ0JZ Replacement of Right Shoulder Joint with Synthetic Substitute, Open Approach (ICD-10-PCS; principal; 2018-03-27 13:50)
DX: M19.011 Primary osteoarthritis, right shoulder (principal); E78.5 Hyperlipidemia, unspecified; I10 Essential (primary) hypertension; Z79.82 Long term (current) use of aspirin; Z87.442 Personal history of urinary calculi; Z87.891 Personal history of nicotine dependence; Z86.19 Personal history of other infectious and parasitic diseases; R00.0 Tachycardia, unspecified
CPT/HCPCS: 64415; 71046; 80048; 84132; 84439; 84443; 85025; 87040; 88300; 93005; 93306